=== PATIENT | male | born 1980 | race African-American/Black ===

== ENCOUNTER 2018-12-08 08:43 | Inpatient (IN) | payer MEDICAID ==
[2018-12-08] MEDS ORDERED: Sodium Chloride 0.9% 1,000 ML IV ONE (09:06)
[2018-12-08] MEDS ORDERED: Aspirin 81mg Chewable Tab PO STA (09:08)
[2018-12-08] MEDS ORDERED: Albuterol/Ipratropium Neb 3 ML AERS HHN ONE ×2 (09:09→09:32)
[2018-12-08] MEDS ORDERED: Aspirin 81mg Chewable Tab ONE (09:29)
[2018-12-08 09:40] LABS: INR 0.98 (0.5-1.4); PROTHROMBIN TIME (TEST) 10.2 SECONDS (9.5-11.5)
[2018-12-08 09:51] LABS: ALB/GLOB RATIO 1.4 (1.0-1.8); ALBUMIN 4.1 gm/dL (4.2-5.5); ALKALINE PHOSPHATASE 60 U/L (34-104); AMYLASE SERUM 46 U/L (29-103); ANION GAP 12.1 (7.0-16.0); BILIRUBIN,TOTAL 0.4 mg/dL (0.3-1.0); BUN - UREA NITROGEN 9 mg/dL (7-25); CALCIUM SERUM 9.3 mg/dL (8.6-10.3); CARBON DIOXIDE 22.4 mEq/L (21.0-31.0); CHLORIDE 105 mEq/L (98-107); CHOLESTEROL 98 mg/dL (<200); CREATININE - SERUM 0.9 mg/dL (0.7-1.3); CREATININE KINASE 133 U/L (30-223); GFR AFRICAN-AMERICAN > 60.0 ml/min (>90); GFR NON AFRICAN-AMERICAN > 60.0 ml/min; GLUCOSE 130 mg/dL (70-105); HDL -HIGH DENSITY LIPOPROTEIN 35 mg/dL (23-92); LIPASE 12 U/L (11-82); POTASSIUM SERUM 3.5 mEq/L (3.5-5.1); SGOT 23 U/L (13-39); SGPT/ALT 18 U/L (7-52); SODIUM SERUM 136 mEq/L (136-145); TRIGLYCERIDES 56 mg/dL (<150)
--- NOTE | 2018-12-08 09:52 | ED Physician Chart ---
ED Chief Complaint/HPI - Patient Information Date Seen:: 12/08/18 Time Seen:: 08:45 Chief Complaint:: Chest Pain History of Present Illness:: onset x 3 days of exertional C/P and dyspnea with productive cough, fever, and congestion; pt denies trauma, H/As, S/T, neck pain, Abd. Pain, A/N/V/D/C, chills , or urinary s/s Allergies:: Allergies Allergy/AdvReac Type Severity Reaction Status Date / Time No Known Allergies Allergy Verified 12/08/18 09:17 Vitals:: Vital Signs - 8 hr 12/08/18 12/08/18 08:45 09:39 Temp 100.0 F HR 99 89 RR 28 19 BP 118/83 O2 Sat % 95 96 Historian:: Patient Review:: Nurse's Note Reviewed, Old Chart Reviewed ED Review of Systems - Review of Systems General/Constitutional: Fever, No chills, No weight loss, No weakness, No diaphoresis, No edema, No loss of appetite Skin: No skin lesions, No rash, No bruising Head: No headache, No light-headedness Eyes: No loss of vision, No pain, No diplopia ENT: No earache, Nasal drainage, No sore throat, No tinnitus Neck: No neck pain, No swelling, No thyromegaly, No stiffness, No mass noted Cardio Vascular: Chest pain, No palpitations, No PND, No orthopnea, No edema Pulmonary: SOB, Cough, No sputum, Wheezing GI: No nausea, No vomiting, No diarrhea, No pain, No melena, No hematochezia, No constipation, No hematemesis G/U: No dysuria, No frequency, No hematuria, No nacturia Musculoskeletal: No bone or joint pain, No back pain, No muscle pain Endocrine: No polyuria, No polydipsia Psychiatric: No prior psych history, No depression, No anxiety, No suicidal ideation, No homicidal ideation, No auditory hallucination, No visual hallucination Hematopoietic: No bruising, No lymphadenopathy Allergic/Immuno: No urticaria, No angioedema Neurological: No syncope, No focal symptoms, No weakness, No paresthesia, No headache, No seizure, No dizziness, No confusion, No vertigo ED Past Medical History - Past Medical History Obtainable: Yes Past Medical History: HTN, Asthma/COPD Family History: Heart disease, Diabetes Melitus, HTN Social History: Smoker, Alcohol, No Drug Use, Single Surgical History: None Psychiatricy History: None Medication: Reviewed Family Medical History - Family Member Father History Unknown: Yes ED Physical Exam - Physical Examination General/Constitutional: Awake, Well-developed, well-nourished, Alert, No distress, GCS 15, Non-toxic appearing, Ambulatory Head: Atraumatic Eyes: Lids, conjuctiva normal, PERRL, EOMI Skin: Nl inspection, No rash, No skin lesions, No ecchymosis, Well hydrated, No lymphadenopathy ENMT: External ears, nose nl, TM canals nl, Nasal exam nl, Lips, teeth, gums nl , Oropharynx nl, Tonsils nl Neck: Nontender, Full ROM w/o pain, No JVD, No nuchal rigidity, No bruit, No mass, No stridor Respiratory: Nl effort/Exclusion Other Respiratory comments:: Lungs: + Rhonchi, Rales, and Wheezes Cardio Vascular: RRR, No murmur, gallop, rubs, NL S1 S2, Carotid/Femoral/Distal pulses equal bilaterally GI: No tenderness/rebounding/guarding, No organomegaly, No hernia, Normal BS's, Nondistended, No mass/bruits, No McBurney tenderness, Rectum exam nl Other GI comments:: no pulsatile masses : No CVA tenderness Extremities: No tenderness or effusion, Full ROM, normal strength in all extremities, No edema, Normal digits & nails Neuro/Psych: Alert/oriented, DTR's symmetric, Normal sensory exam, Normal motor strength, Judgement/insight normal, Mood normal, Normal gait, No focal deficits Misc: Normal back, No paraspinal tenderness ED Labs/Radiology/EKG Results - Lab Results Results: Laboratory Tests 12/08/18 09:20 PT 10.2 INR 0.98 PTT (Actin FS) 28.5 Comments:: Reviewed - Radiology Results Comments:: CXR: NAD - EKG Interpretations EKG Time:: 09:30 Rate & Rhythm: 84; NSR Comments:: non-specific st-t changes ED Septic Shock - . Is Septic Shock (SBP<90, OR Lactate>4 mmol\L) present?: No - <6hrs of presentation: Vital Signs: Vital Signs - 8 hr 12/08/18 12/08/18 08:45 09:39 Temp 100.0 F HR 99 89 RR 28 19 BP 118/83 O2 Sat % 95 96 ED Reassessment (Disposition) - Reassessment Reassessment Condition:: Improved - Diagnosis Diagnosis:: Chest Pain; Angina Pectoris; HTN; Asthma; Bronchitis; Dyspnea; Asthmatic Bronchitis; Fever; Sepsis; Leukopenia - Aftercare/Follow up Instructions Aftercare/Follow-Up Instructions:: Counseled pt regarding lab results/diagnosis & need follow up, Counseled pt & family regarding lab results/diagnosis & need follow up - Patient Disposition Discharge/Transfer:: Acute Care w/in this hosp Accepting Physician:: Dr. Brandon Time Called:: 1030 Time Responded:: 10:30 Admitted to:: Telemetry Spoke to:: Dr. Brandon Admitting Medical Physician:: Dr. Brandon Condition at Disposition:: Stable, Improved
--- NOTE | 2018-12-08 09:56 | Diagnostic Imaging Report ---
Portable chest x-ray History: Pain Allowing for portable technique the heart size is normal. No focal pulmonary parenchymal processes. No hilar or mediastinal abnormalities. Impression: No acute abnormalities.
[2018-12-08 10:19] LABS: RED CELL DISTRIBUTION WIDTH 14.4 % (11.5-20.0)
[2018-12-08 10:27] LABS: HEMATOCRIT 46.1 % (41.0-60); RED BLOOD COUNT 5.98 Mil/cmm (4.30-5.70); WHITE BLOOD COUNT 2.8 Th/cmm (4.8-10.8)
[2018-12-08 10:28] LABS: MEAN CORPUSCULAR HGB CONC 32.5 pg (28.0-36.0); MEAN PLATELET VOLUME 8.2 fl; PLATELET COUNT 228 Th/cmm (150-400)
[2018-12-08 10:39] LABS: URINE SOURCE RANDOM
[2018-12-08 10:42] LABS: URINE BILIRUBIN NEGATIVE (NEGATIVE); URINE BLOOD NEGATIVE (NEGATIVE); URINE GLUCOSE (UA) NEGATIVE (NEGATIVE); URINE KETONE NEGATIVE (NEGATIVE); URINE LEUKOCYTE ESTERASE NEGATIVE (NEGATIVE); URINE NITRATE NEGATIVE (NEGATIVE); URINE PROTEIN NEGATIVE (NEGATIVE); URINE UROBILINOGEN 0.2 E.U./dL (0.2 - 1.0)
[2018-12-08 10:45] LABS: URINE CLARITY CLEAR (CLEAR); URINE COLOR YELLOW; URINE MICROSCOPIC INDICATED? NO
[2018-12-08] MEDS ORDERED: Levofloxacin 500mg/100mL 500 MG/100 ML BAG IV ONE ×2 (11:29→11:34)
[2018-12-08] MEDS ORDERED: Maalox 30 mL Cup PO PRN (12:44)
[2018-12-08] MEDS ORDERED: Ipratropium Neb 0.5 mg/2.5 mL UD IH PRN (12:44)
[2018-12-08] MEDS ORDERED: guaiFENesin 200 MG/10 ML UDC PO PRN (12:44)
[2018-12-08] MEDS ORDERED: Morphine Sulfate 2 mg/mL 1mL Syr IVP PRN (12:44)
[2018-12-08] MEDS ORDERED: Albuterol Nebulizer 2.5mg/3mL HHN PRN (12:44)
[2018-12-08] MEDS ORDERED: D5-0.9%NS 1,000 ML IV SCH (12:45)
--- NOTE | 2018-12-08 13:18 | History & Physical ---
ADMIT DATE: 12/08/2018 CHIEF COMPLAINT: Chest pains. HISTORY OF PRESENT ILLNESS: This is a 38-year-old -[place] male with history of asthma, chronic bronchitis, admitted with a 3-day history of chest pain, worse with deep breathing. Initial troponin is negative. The patient advised to be admitted. PAST MEDICAL HISTORY: As mentioned in history present illness. PAST SURGICAL HISTORY: Multiple back surgeries and a right axillary. ALLERGIES: No known drug allergies. MEDICATIONS: None at home. FAMILY HISTORY: Denies diabetes or coronary artery disease. SOCIAL HISTORY: Smokes occasionally, drinks occasionally. No intravenous drug use. The patient works in a warehouse. Single with 5 children. REVIEW OF SYSTEMS: GENERAL: The patient denies any constitutional symptoms, just not feeling well. HEENT: No blurred vision. LUNGS: No diagnosis of COPD. The patient with asthma. HEART: Questionable history of hypertension, on medications, presents with chest pain. ABDOMEN: No nausea, vomiting, pain. GENITOURINARY: The patient denies increased frequency or dysuria. NEUROLOGIC: No headache, seizure or syncope. PSYCHIATRIC: See above. PHYSICAL EXAMINATION: VITAL SIGNS: Blood pressure 125/74, respirations 20, pulse 93, temperature 98.0. GENERAL: A middle-aged male, in some distress. NECK: Supple. LUNGS: Equal breath sounds, otherwise clear to auscultation. HEART: Regular rate and rhythm without appreciable murmur. ABDOMEN: Soft, nontender. EXTREMITIES: Limited. LABORATORY DATA: WBC 2, hemoglobin 15, platelets 228. D-dimer is negative. BUN and creatinine within normal range. Blood sugar 130. Troponin negative. BNP negative. UA negative. ASSESSMENT AND PLAN: Chest pain, atypical, asthma, leukopenia, hyperglycemia. We will rule out the patient for myocardial infarction. We will refer 2D echo. We will refer the patient to Cardiology. Continue the patient also on bronchodilator treatment. We will monitor the patient's labs. I will admit the patient to telemetry for now. JOB# [id number]
[2018-12-08 13:27] LABS: ATYPICAL LYMPH 9 %; BAND NEUTROPHILE 0 % (0-10); BASOPHIL 1 % (0-3); EOSINOPHIL 0 % (0-5); LYMPHOCYTE 34 % (20-50); MONOCYTE 21 % (2-10); NEUTROPHILS 35 % (40-80)
--- NOTE | 2018-12-09 06:15 | Consultation ---
DATE OF CONSULTATION: 12/08/[address] Edd Brandon. HISTORY OF PRESENT ILLNESS: This is a 38-year-old male patient who has a known history of asthma, came to the hospital complaining of shortness of breath, atypical chest pain. No history of PND, orthopnea. PAST MEDICAL HISTORY: Asthma, multiple back surgeries. FAMILY HISTORY: No history of diabetes. SOCIAL HISTORY: The patient smokes about 2 cigarettes a day, drinks alcohol socially. ALLERGIES: No known allergies. PHYSICAL EXAMINATION: VITAL SIGNS: Blood pressure 125/70, pulse 70, respirations 20. HEAD: Normocephalic. No lumps or bumps. EYES: Pupils equal, reactive to light. Fundi show AV nicking, sclerae white, conjunctivae pink. NECK: Carotid 2+. Normal upstroke. JVD flat. Thyroid not palpable. Lymph nodes not palpable. CHEST: Shows increased AP diameter. No kyphosis, scoliosis. LUNGS: Bilateral bronchovesicular breath sounds. Occasional wheeze. HEART: Regular rhythm, S1, S2, soft S3, S4. ABDOMEN: Soft. Liver, spleen not palpable. No organomegaly. Bowel sounds active. NEUROLOGIC: Unremarkable. EXTREMITIES: Peripheral pulses 2+. No pedal edema. CLINICAL IMPRESSION: Atypical chest pain, troponin level normal, asthma, hyperlipidemia. PLAN: The patient to get troponin level, EKG, echocardiogram. JOB# [id number]
[2018-12-09] MEDS ORDERED: Aspirin 325 mg EC PO SCH (09:00)
--- NOTE | 2018-12-09 13:23 | Cardiology ---
12/08/[address] Brandon. M-MODE ECHOCARDIOGRAM: Mitral valve, anterior leaflet of mitral valve shows normal excursion, EF velocity. Posterior leaflet of the mitral valve shows normal excursion. Left ventricular posterior wall shows increased thickness, normal excursion. Interventricular septum shows increased thickness, normal excursion, hypertrophy of the left ventricle, ejection fraction 49%. Left atrium normal. Aortic root shows normal dimension, normal excursion of aortic leaflets. CONCLUSION: Hypertrophy of the left ventricle, ejection fraction 49%. 2D ECHO: Long axis view showed normal sized left ventricle with hypertrophy of the left ventricle. Left atrium normal. Aortic root shows normal dimension, normal excursion of aortic leaflets. Short axis view of mitral valve normal. Short axis view of aortic valve normal. Apical four chamber view showed normal sized left ventricle with hypertrophy of the left ventricle. Left atrium enlarged. Right ventricular cavity, right atrium normal. No pericardial effusion. CONCLUSION: Hypertrophy of the left ventricle, ejection fraction 49%. Doppler study shows trace mitral regurgitation, mild tricuspid regurgitation, right ventricular systolic pressure 31 mmHg. JOB# [id number]
== END 2018-12-08 21:31 | disposition home or self-care (01) | DRG 720 ==
LOC: ER 08:43 → TELE 12:20
PROVIDERS: ADMIT Internal Medicine; ATTEND Internal Medicine
DX: A41.9 Sepsis, unspecified organism (principal); J96.10 Chronic respiratory failure, unspecified whether with hypoxia or hypercapnia; E78.5 Hyperlipidemia, unspecified; I10 Essential (primary) hypertension; F17.210 Nicotine dependence, cigarettes, uncomplicated; J44.9 Chronic obstructive pulmonary disease, unspecified; I20.9 Angina pectoris, unspecified; R07.89 Other chest pain; R73.9 Hyperglycemia, unspecified; Z83.3 Family history of diabetes mellitus; Z82.49 Family history of ischemic heart disease and other diseases of the circulatory system
CPT/HCPCS: 36415-UA; 71045-TC; 80053-TC; 80061-TC; 81003-TC; 82150-TC; 82550-TC; 83605; 83690-TC; 83880-TC; 84484-TC; 85007-TC; 85025-TC; 85379-TC; 85610-TC; 85730-TC; 90779; 93005; 94640; 94760; 96375; J1956; J2405; J2930; J7030; J7042; J7613; Z7610